=== PATIENT | male | born 1960 | race Caucasian/White ===

== ENCOUNTER 2016-06-20 | Outpatient (CLI) | payer BC, OTHER | END 2016-06-20 13:47 | disposition critical access hospital (66) | DX: I46.9 Cardiac arrest, cause unspecified (principal) | CPT/HCPCS: A0425; A0433 ==

== ENCOUNTER 2016-06-20 14:04 | Emergency (ER) | payer BC, OTHER ==
[2016-06-20] MEDS ORDERED: EPINEPHrine ABBOJECT 1 MG/10 ML SYRINGE IVP STA (14:23)
[2016-06-20] MEDS ORDERED: EPINEPHrine ABBOJECT 1 MG/10 ML SYRINGE ONE (15:24)
== END 2016-06-20 17:03 | disposition expired ==
DX: I21.3 ST elevation (STEMI) myocardial infarction of unspecified site (principal)